=== PATIENT | male | born 1960 | race Caucasian/White ===

== ENCOUNTER 2018-01-08 12:41 | Outpatient (CLI) | payer MEDICARE ==
--- NOTE | 2018-01-08 15:51 | MRI ---
MRI THORACIC SPINE WITHOUT CONTRAST: 01/08/18 HISTORY: Thoracic radiculopathy. Mid back pain, below shoulder blades. History of neck fusion. COMPARISON: 01/24/15. TECHNIQUE: Thoracic spine MRI is performed without intravenous gadolinium administration. Multisequential, multi planar imaging is performed. FINDINGS: Stable metallic susceptibility artifact involving posterior fusion hardware at T1. There is a stable heterogeneous marrow signal intensity of the thoracic vertebra. Stable intrinsic T1 and T2 hyperinten sities predominantly at T7, T9, T11 and T12 which are felt to be due to osseous hemangiomas. Addition al areas of heterogeneous marrow signal intensity are felt to represent fatty infiltration of the buck tebral bodies. There is stable grade I anterolisthesis of T2 upon T3, T3 upon T4, and T4 upon T5. The re is evidence of edema involving the T2, T3 and T4 vertebral bodies which was not present on the kane or examination. There is no significant loss of vertebral body height and the edema is presumed to be due to degenerative change. The visualized mediastinal structures and solid organs are unremarkable. Conus medullaris terminates at the inferior aspect of T12. Stable syringohydromyelia. Axial images are slightly limited by motion degradation. T1-T2: No significant central canal stenosis. T2-T3: Broad based disc bulge. Mild central canal stenosis. Mild posterior element hypertrophy. Neura l foramina are patent. T3-T4: Small right paracentral disc. No high grade central canal stenosis. Foramina are patent. T4-T5: Generalized disc which abuts the thecal sac. Mild mass effect upon the right hemicord. Mild ce ntral canal stenosis. Foramina are patent. T5-T6 and T6-T7: There is mild loss of disc space height. Mild central canal stenosis. T7- T8: No significant central canal stenosis. T8-T9: No significant central canal stenosis. T9-T10, T10-T11, T11-T12 and T12-L1: No significant central canal stenosis. IMPRESSION: 1. Degenerative changes involving the upper and mid thoracic spine. When compared to the previou s examination, no significant interval change. 2. Stable hemangiomas. 3. Intrinsic STIR hyperintensity involving T2, T3 and T4, without significant loss of vertebral body height. Vertebral body edema is favored, likely on the basis of degenerative change. POS: [facility]
== END 2018-01-08 12:42 | disposition home or self-care (01) ==
LOC: TBSIIMAG 12:41
PROVIDERS: ATTEND Neurological Surgery
DX: M47.24 Other spondylosis with radiculopathy, thoracic region (principal); D18.00 Hemangioma unspecified site; R93.7 Abnormal findings on diagnostic imaging of other parts of musculoskeletal system; M43.22 Fusion of spine, cervical region
CPT/HCPCS: 72146

== ENCOUNTER 2018-02-07 08:49 | Outpatient (CLI) | payer MEDICARE, BC ==
[2018-02-07] MEDS ORDERED: Iopamidol 370 76% 100 ML VIAL ONE (11:24)
--- NOTE | 2018-02-07 12:54 | CT ---
CT OF THE THORACIC SPINE WITHOUT AND WITH CONTRAST: COMPARISON: MRI thoracic spine 01/08/18. HISTORY: Lesion seen on thoracic spine MRI. These most likely represent hemangiomas. Evaluate for a more agg ressive lesion. TECHNIQUE: Multiple contiguous axial images were obtained in a CT of the thoracic spine without and with IV cont rast. Sagittal and coronal reformats were performed. FINDINGS: There are subtle lytic lesions in the thoracic spine. The largest is seen at T7 and has a corduroy a ppearance. These lesions most likely represent hemangiomas and appear well circumscribed. No cortic al breakthrough is seen in the thoracic spine. Anterior osteophytes are seen throughout the thoracic spine. The visualized posterior lungs are unremarkable. The visualized intraabdominal structures are unrema rkable. No abnormal enhancement is appreciated. 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 POS: [facility]
--- NOTE | 2018-02-07 13:01 | CT ---
CT Lumbar spine with and without contrast HISTORY: Evaulate for osseous metastasis COMPARISON: Prior MRI The paraspinal soft tissues are unremarkable. There is mild atherosclerotic plaque of the aorta with out aneurysmal dilatation. Moderate stool burden within the sigmoid colon. No hydronephrosis. No aggressive osteolytic or osteoblastic blastic lesion of the spine. Levels are as follows: T12-L1: Anterior and posterior disk-osteophyte complex. No significant spinal canal or neural darwin inal narrowing. L1-2: Normal disks. No neural foraminal or spinal canal narrowing. L2-3: Mild ligamentum flavum hypertrophy. Mild facet arthropathy. No significant neural foraminal or spinal canal narrowing. Small posterior disk-osteophyte complex. L3-4: Moderate facet arthrosis. Moderate ligamentum flavum hypertrophy. Small left lateral recess posterior disk-osteophyte complex. There is mild left-sided neural foraminal narrowing. The spinal canal is not significantly narrowed. L4-5: There is a circumferential disk bulge. Moderate facet arthrosis. Posterior disk-osteophyte c omplex. There is mild bilateral neural foraminal narrowing. The spinal canal is not significantly n arrowed. L5-S1: Severe degenerative disk space height loss, end plate sclerosis, and erosions. Posterior dis k-osteophyte complex. Moderate facet arthropathy. There is moderate to severe bilateral neural fora disha narrowing. There appears to be abutment of the traversing bilateral S2 nerve roots due to the posterior disk-osteophyte complex. IMPRESSION: 1. Mild to moderate spondylosis as described above, worse at L4-5 and L5-S1. 2. 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 POS: [facility]
--- NOTE | 2018-02-07 14:24 | NM ---
NUCLEAR MEDICINE BONE SCAN WHOLE BODY: (SKELETAL SCINTIGRAPHY) DATE: 02/07/18. HISTORY: A 57-year-old male with diagnosis of hemangioma of other sites Abnormal bone marrow signal of multiple vertebral bodies throughout the thoracic spine noted on MRI o f thoracic spine of 01/08/18. TECHNIQUE: IV injection of [id number]: 31 mCi. 3 hour delayed whole body skeletal scintigraphy in anterior and posterior views. FINDINGS: There are no foci of asymmetrically increased uptake that are particularly suspicious for bone metast ases. There are numerous small, scattered regions of asymmetrically distributed foci of increased up take in the upper and mid thoracic spine. Upon review of the MRI of 01/08/[address] of 02/07/18, these are consistent with discogenic degenerative changes. The more extensive bone marrow edema involving 2 of the upper thoracic vertebral levels probably represent severe Modic type I changes. Osteomyeli tis is less likely. There is no evidence of metastatic foci in the ribs, pelvis, skull, or major dagmar g bones of the upper and lower extremities. IMPRESSION: No compelling evidence of skeletal metastasis. JN Nik POS: [facility]
== END 2018-02-07 08:50 | disposition home or self-care (01) ==
LOC: CT 08:49
PROVIDERS: ATTEND Neurological Surgery
DX: D18.09 Hemangioma of other sites (principal); M47.897 Other spondylosis, lumbosacral region
CPT/HCPCS: 72130; 72133; 78306; A9503